=== PATIENT | male | born 1955 | race Caucasian/White ===

== ENCOUNTER 2021-07-15 07:10 | Day surgery (SDC) | payer OTHER ==
[2021-07-14 16:40] VITALS: BMI 43.0
[2021-07-15] MEDS ORDERED: ROPIVACAINE HCL 0.5% 30ML VIAL ONE (08:35)
[2021-07-15] MEDS ORDERED: MIDAZOLAM HCL 2 MG/2 ML SINGLE DOSE VIAL ONE ×3 (08:35→09:03)
[2021-07-15] MEDS ORDERED: PROPOFOL 20 ML ONE ×2 (08:55)
[2021-07-15] MEDS ORDERED: SUCCINYLCHOLINE CHLORIDE 200 MG/10 ML SYRINGE ONE (08:55)
[2021-07-15] MEDS ORDERED: LABETALOL HCL 5 MG/1 ML (100MG/20 ML VIAL) ONE (09:19)
[2021-07-15] MEDS ORDERED: ceFAZolin SODIUM 1 GM VIAL ONE (09:19)
[2021-07-15] MEDS ORDERED: ONDANSETRON 4 MG/2 ML VIAL ONE (09:19)
[2021-07-15] MEDS ORDERED: KETOROLAC TROMETHAMINE 30 MG/1 ML VIAL ONE (09:19)
[2021-07-15 10:40] VITALS: TEMP 97.9
[2021-07-15 11:17] VITALS: BP 112/79; PULSE 84
== END 2021-07-15 11:40 | disposition home or self-care (01) ==
LOC: FASU 07:10
PROVIDERS: ATTEND Orthopaedic Surgery
PROC: 0PB94ZZ Excision of Right Clavicle, Percutaneous Endoscopic Approach (ICD-10-PCS; principal; 2021-07-15 09:19)
PROC: 0RNJ4ZZ Release Right Shoulder Joint, Percutaneous Endoscopic Approach (ICD-10-PCS; 2021-07-15 09:19)
DX: M75.41 Impingement syndrome of right shoulder (principal); M19.011 Primary osteoarthritis, right shoulder; M94.211 Chondromalacia, right shoulder
CPT/HCPCS: 94760

== ENCOUNTER 2021-11-10 11:40 | Emergency (ER) | payer OTHER ==
[2021-11-10 11:55] VITALS: BP 137/80; PULSE 79; TEMP 98.8; BMI 41.8
[2021-11-10 13:10] LABS: ALBUMIN 3.6 g/dl (3.4-5.0); BILIRUBIN,TOTAL 0.5 mg/dl (0.2-1); CALCIUM 8.7 mg/dl (8.5-10); CREATININE 1.1 mg/dl (0.55-1.3); TOT PROT 6.5 g/dl (6.4-8.2)
[2021-11-10 14:31] LABS: BASO % 0.8 % (0-2.0); EOS % 3.7 % (0-4.5); HEMATOCRIT 40.8 % (35.4-49); HEMOGLOBIN 14.2 GM/dL (11.7-16.9); LYMPH % 17.6 % (8-40); MCH 33.9 pg (25.7-33.7); MCHC 34.7 g/dl (32.0-35.9); MEAN CELL VOLUME 97.8 fl (80-96); MONO % 7.9 % (3.8-10.2); PLATELET COUNT 307 10^3/uL (134-434); RBC 4.17 M/mm3 (4.00-5.60); RDW 14.5 % (11.9-15.9); WHITE BLOOD COUNT 8.6 K/mm3 (4.0-10.0)
== END 2021-11-10 15:49 | disposition home or self-care (01) ==
LOC: FER 11:40
DX: S81.802A Unspecified open wound, left lower leg, initial encounter (principal); R60.0 Localized edema; L03.116 Cellulitis of left lower limb; L03.115 Cellulitis of right lower limb; Y99.9 Unspecified external cause status
CPT/HCPCS: 36415; 80053; 85025; 93970-TC; 99284-25

== ENCOUNTER 2022-07-03 18:45 | Emergency (ER) | payer OTHER ==
[2022-07-03 18:55] VITALS: BP 157/76; PULSE 80; RESP 20; TEMP 99; BMI 41.8
[2022-07-03] MEDS ORDERED: KETOROLAC TROMETHAMINE 15 MG/ML VIAL IVPUSH ONE (21:07)
[2022-07-03] MEDS ORDERED: KETOROLAC TROMETHAMINE 15 MG/ML VIAL ONE (21:44)
[2022-07-03] MEDS ORDERED: LIDOCAINE PATCH REMOVAL MC SCH (22:00)
[2022-07-03] MEDS ORDERED: METHOCARBAMOL 500 MG TABLET PO ONE (22:20)
[2022-07-03] MEDS ORDERED: LIDOCAINE 5% TOPICAL PATCH TP ONE (22:20)
[2022-07-03 23:03] LABS: BASO % 0.7 % (0-2.0); EOS % 3.3 % (0-4.5); HEMATOCRIT 42.2 % (35.4-49); HEMOGLOBIN 14.9 GM/dL (11.7-16.9); LYMPH % 26.5 % (8-40); MCH 36.4 pg (25.7-33.7); MCHC 35.3 g/dl (32.0-35.9); MEAN CELL VOLUME 103.2 fl (80-96); MEAN PLT VOLUME 6.7 fl (7.5-11.1); MONO % 5.6 % (3.8-10.2); NEUT % 63.9 % (42.8-82.8); PLATELET COUNT 302 10^3/uL (134-434); RBC 4.09 M/mm3 (4.00-5.60); RDW 14.5 % (11.9-15.9); WHITE BLOOD COUNT 8.9 K/mm3 (4.0-10.0)
[2022-07-03] MEDS ORDERED: METHOCARBAMOL 500 MG TABLET ONE ×2 (23:12→23:17)
[2022-07-03] MEDS ORDERED: LIDOCAINE 5% TOPICAL PATCH ONE (23:12)
[2022-07-03 23:51] LABS: ALBUMIN 3.4 g/dl (3.4-5.0); ALK PHOS 126 U/L (45-117); ANION GAP 11 MMOL/L (8-16); BILIRUBIN,TOTAL 0.5 mg/dL (0.2-1); BLOOD UREA NITROGEN 11.5 mg/dL (7-18); CALCIUM 8.1 mg/dL (8.5-10.1); CHLORIDE 109 mmol/L (98-107); CO2 18 mmol/L (21-32); GLUCOSE,RANDOM 88 mg/dL (74-106); SGOT/AST 108 U/L (15-37); SGPT/ALT 27 U/L (13-61); SODIUM 138 mmol/L (136-145); TOT PROT 7.8 g/dl (6.4-8.2)
== END 2022-07-04 01:50 | disposition home or self-care (01) ==
LOC: JER 18:45
PROC: 3E0333Z Introduction of Anti-inflammatory into Peripheral Vein, Percutaneous Approach (ICD-10-PCS; principal; 2022-07-03)
DX: R10.32 Left lower quadrant pain (principal); M54.50 Low back pain, unspecified
CPT/HCPCS: 36415; 74176-TC; 80053; 80307; 84436; 84443; 85025; 93005; 93010; 99285-25